=== PATIENT | male | born 1960 | race Caucasian/White ===

== ENCOUNTER 2017-01-31 02:08 | Observation (INO) ==
--- NOTE | 2017-01-31 02:41 | Emergency Department Report ---
General Adult HPI - General Chief complaint: Abdominal Pain Stated complaint: abd pain Time Seen by Provider: 01/31/17 02:13 Source: patient Mode of arrival: ambulatory Limitations: no limitations - History of Present Illness HPI narrative: 56-year-old male presents to the emergency department with the chief complaint of abdominal discomfort. Patient noted onset of symptoms around 7 PM today. Patient describes his discomfort as a burning sensation in the epigastric region without radiation. Patient describes his discomfort as moderate to severe. He denies any trauma, travel, poorly prepared food, recent antibiotic use. He denies any other complaints or associated symptoms. He was at home when his symptoms began. Symptoms have been persistent in nature since onset. Patient does have a history of acid reflux and notes that he has been without his PPI since January 29. Patient was discharged home on January 30, 2017 at 1600 after having a a surgery on his knee at 2100 on January 29, 2017. - Related Data Home Medications Medication Instructions Recorded Confirmed Omeprazole 1 cap PO BID #0 03/11/15 01/31/17 Silodosin [Rapaflo] 1 cap PO DAILY #0 03/11/15 01/31/17 Trazodone HCl 12.5 mg PO HS PRN #0 03/11/15 01/31/17 buPROPion HCl [Wellbutrin Xl] 1 tab PO HS #0 03/11/15 01/31/17 Iron Fum,Ps/Folic Acid/Vitc/B3 1 cap PO DAILY #30 cap 12/29/15 01/31/17 [Integra F Capsule] Hydrocodone/APAP 5/325 [[place] 1 tab PO PRN PRN 01/31/17 01/31/17 5/325] Previous Rx's Medication Instructions Recorded Amoxicillin/Potassium Clav 1 tab PO BID 7 Days #14 tab NS 12/29/15 [Augmentin 875-125 Tablet] Allergies Allergy/AdvReac Type Severity Reaction Status Date / Time No Known Allergies Allergy Verified 01/31/17 02:53 Review of Systems Constitutional: Denies: fever, chills Eyes: Denies: eye pain, vision change ENT: Denies: ear pain, throat pain Cardiovascular: Denies: chest pain, palpitations Respiratory: Denies: cough, dyspnea Gastrointestinal: Reports: abdominal pain, nausea, vomiting. Denies: diarrhea Genitourinary: Denies: urgency, dysuria Musculoskeletal: Denies: back pain, arthralgia Integumentary: Denies: erythema, rash Neurological: Denies: headache, numbness Psychiatric: Denies: anxiety, depression Endocrine: Denies: fatigue, heat or cold intolerance Hematological/Lymphatic: Denies: easy bleeding, easy bruising Allergic/Immunologic: Denies: facial swelling, urticaria PFSH Patient Stated Medical History Gastroesophageal Reflux Yes Disease Other Yes: enlarged prostate Clinic Medical History Cholelithiasis (Acute Medical) Dehydration (Acute Medical) Surgical History: Orthopedic surgeries Family History: Reviewed and noncontributory - Social History Smoking status: Never smoker Substance use type: does not use Alcohol intake frequency: does not drink Physical Exam - Limitations Limitations: no limitations - General General appearance: alert, in no apparent distress - Normal Exams: Head:: Normocephalic without trauma Eyes:: Pupils are PERRLA w/ EOMI, No scleral icterus, irritation, or foreign bodies noted ENMT:: No facial trauma, nasal exudates, pharyngeal erythema, or exudates are noted Dental: No fractured, loose, or missing teeth noted Neck:: Full range of motion, without adenopathy, JVD, bruits or thyromegaly Chest/Respirations:: Clear all gama, with good airflow, and symmetry bilaterally Cardiovascular:: Regular rate and rhythm, without murmur or gallop, Pulses 2+ all extremities, capillary refill, <2 seconds all extremities Abdomen:: Bowel sounds positive (soft. Generalized tenderness to the epigastrium. No rebound or guarding. No CVA tenderness.), non-distended, no hepatosplenomegaly, masses or bruits noted Lymphatic:: No lymphadenopathy, or lymphedema noted Musculoskeletal:: No tenderness, or deformity noted, good range of motion, all extremities Integumentary:: No rashes, hives, or bruising noted, hair and nails, without abnormality Neurological:: Patient is alert, and oriented, cranial nerves, motor/sensory/ cerebellar, exams w/o gross deficits, to observation Psychiatric:: Patient exhibits, appropriate attention, emotion and affect Course Vital Signs Temperature 98.2 F 01/31/17 02:10 Pulse Rate 67 01/31/17 02:10 Respiratory Rate 20 01/31/17 02:10 Blood Pressure 139/69 01/31/17 02:10 Pulse Oximetry 93 01/31/17 02:10 Temperature 98.2 F 01/31/17 02:10 Pulse Rate 72 01/31/17 04:38 Respiratory Rate 19 01/31/17 04:38 Blood Pressure 118/73 01/31/17 04:38 Pulse Oximetry 98 01/31/17 04:38 Medical Decision Making - [facility] Narrative Medical decision making narrative: Labs/imaging were discussed in detail with the patient and family and questions are answered. Patient was given approximately 750 mL of normal saline times one. Patient was given parental narcotic and antiemetic medications intravenously with improvement of symptoms. Patient was given a GI cocktail with some improvement. Patient and family are not comfortable returning home at this time. Patient requests admission to [facility] for further evaluation and treatment. Patient is discussed with Dr. Link from the tele- hospitalist service and will be admitted to the service of Dr. Heath in improved condition. Patient's initial pulse ox was noted at 93% however whenever the patient is instructed to take deep breaths his pulse ox raises and remains 96-98% on room air. Patient denies chest pain or shortness of breath. I have no current indication for antibiotic therapy at this time. No further orders from accepting physician who is in agreement with the current plan of management. Patient is admitted to the hospital for further evaluation and treatment at this time. - Differential Diagnosis GERD, cholelithiasis, acute cholecystitis, pancreatitis, SBO - Lab Data Result diagrams: 01/31/17 02:50 01/31/17 02:50 Lab Results 01/31/17 01/31/17 01/31/17 Range/Units 02:50 02:50 03:12 WBC 12.9 H (4.5-11.0) T/MM3 RBC 4.16 L (4.50-5.90) M/MM3 Hgb 13.4 L (13.5-17.5) GM/DL Hct 39.3 L (41-53) % MCV 94.5 (80-100) UM3 MCH 32.2 (26-34) UUG MCHC 34.1 (31-37) GM/DL RDW Std Deviation 42.0 (36.9-50.2) FL Plt Count 202 (130-400) T/MM3 MPV 9.5 (9.4-12.4) UM3 Immature Gran % (Auto) 0.2 (0.0-0.5) % Neut % (Auto) 82.1 H (33-66) % Lymph % (Auto) 10.3 L (23-45) % Rincon % (Auto) 6.9 (0-9.0) % Eos % (Auto) 0.4 (0-4) % Baso % (Auto) 0.1 (0-2) % Neut # (Auto) 10.6 H (1.8-7.7) T/MM3 Lymph # (Auto) 1.3 (1-4.8) T/MM3 Rincon # (Auto) 0.9 H (0-0.8) T/MM3 Eos # (Auto) 0.1 (0-0.5) T/MM3 Baso # (Auto) 0.0 (0-0.2) T/MM3 Abs Immat Gran (auto) 0.02 (0.00-0.03) T/MM3 Turbidity < 20 (0-20) Sodium 143 (134-144) MEQ/L Potassium 3.8 (3.6-5) MEQ/L Chloride 105 (98-107) MEQ/L Carbon Dioxide 26 (22-30) MEQ/L Anion Gap 12 (5-15) MEQ/L BUN 27.0 H (9-20) MG/DL Creatinine 1.0 (0.8-1.5) MG/DL GFR Calculation 77 BUN/Creatinine Ratio 27 H (6-26) RATIO Glucose 161 H (75-110) MG/DL Calculated Osmolality 283 H (261-280) MOSM/KG Calcium 9.4 (8.4-10.2) MG/DL Total Bilirubin 0.60 (0.20-1.30) MG/DL Icterus Index < 2 (0-7) AST 31 (17-59) U/L ALT 48 (21-72) U/L Alkaline Phosphatase 86 (38-126) U/L Troponin I < 0.012 (0-0.12) ng/ml Total Protein 7.3 (6.3-8.2) G/DL Albumin 4.1 (3.5-5.0) G/DL Globulin 3.2 (2.4-3.6) G/DL Albumin/Globulin Ratio 1.3 (1.1-2.2) RATIO Lipase 124 (23-300) U/L Specimen Hemolysis < 15 (0-25) Ur Collection Type Urine, clean catch Urine Color Yellow (YELLOW) Urine Clarity Clear Urine pH 7.0 (5.0-8.0) Ur Specific [place] 1.020 (1.015-1.025) Urine Protein Negative (NEGATIVE) Urine Glucose (UA) Negative (NEGATIVE) Urine Ketones Negative (NEGATIVE) Urine Occult Blood Negative (NEGATIVE) Urine Nitrate Negative (NEGATIVE) Urine Bilirubin Negative (NEGATIVE) Urine Urobilinogen 1.0 (NORMAL) EU/DL Ur Leukocyte Esterase Negative (NEGATIVE) Urinalysis Comment Microscopic not ind. - Radiology Data CT ABD/PELVIS: No evidence of gastritis or duodenitis. Cholelithiasis. No free air. No sign of acute cholecystitis. - EKG Data EKG #1 EKG results narrative: Sinus rhythm. 72 bpm. No STEMI. A normal EKG Disposition Clinical Impression: Dehydration Cholelithiasis Qualifiers: Cholelithiasis location: gallbladder Cholecystitis presence: without cholecystitis Biliary obstruction: without biliary obstruction Qualified Code(s) : K80.20 - Calculus of gallbladder without cholecystitis without obstruction Disposition: [address] [facility] Prescriptions: No Action buPROPion HCl [Wellbutrin Xl] 1 tab PO HS #0 Iron Fum,Ps/Folic Acid/Vitc/B3 [Integra F Capsule] 1 cap PO DAILY #30 cap Amoxicillin/Potassium Clav [Augmentin 875-125 Tablet] 1 tab PO BID 7 Days # 14 tab NS Trazodone HCl 12.5 mg PO HS PRN #0 PRN Reason: INSOMNIA Omeprazole 1 cap PO BID #0 Silodosin [Rapaflo] 1 cap PO DAILY #0 Hydrocodone/APAP 5/325 [[place] 5/325] 1 tab PO PRN PRN PRN Reason: Pain Referrals: Isrrael Lima MD [Physician] - Time of Disposition: 05:00 (Admit. Dr. Heaht. ) - Seen By: physician
[2017-01-31] MEDS ORDERED: NS 1,000 ML IV ONE (02:42)
[2017-01-31] MEDS ORDERED: ONDANSETRON 4 MG/2 ML INJECTION IVP ONE (02:45)
[2017-01-31] MEDS ORDERED: FentaNYL 100 MCG/2 ML INJECTION IVP PRN (02:45)
[2017-01-31] MEDS: SALINE FLUSH 10ml SYRINGE IVF PRN ×2 (02:49→06:53)
[2017-01-31] MEDS ORDERED: GI COCKTAIL 30 ML PO ONE (04:04)
--- NOTE | 2017-01-31 06:03 | History & Physical Report ---
History of Present Illness Date: 01/31/17 Chief complaint: Abdominal pain HPI: Mr Atkins is a 56 y/o male w/ h/o OA s/p TKA w/ recent procedure in [place] (1 overnight stay d/c'd yesterday afternoon), GERD, Anxiety, BPH, and recently diagnosed KEKE who presents to ED at [facility] w/ chief concern of epigastric abdominal pain. Patient states he is normally on omeprazole for GERD, however he stopped that on Wednesday for procedure, and after being discharged from Hospital yesterday afternoon returned home and took a 20mg omeprazole tab and then had a full supper. After supper, patient started having "gas pains" and stabbing pain in his epigastric area with multiple episodes of belching. The pain persisted and became worse through the night so he presented to the ED. He had one episode of n/v - states he made himself vomit to see if he would feel better. Patient denies diarrhea, denies hematemesis, denies f/c/s, denies chest pain and SOA and denies cough and denies constitutional symptoms. Has knee pain following recent procedure. In ER, WBC noted to be 12K, patient given GI cocktail and then Fentanyl and Zofran however continues to have epigastric abdominal pain, albeit is improving. Denies n/v at this time. Troponin negative, EKG unremarkable and CT scan abd/pelvis revealed two 1.5cm gallstones however no ductal dilation, no edema, no stranding and no wall thickening. BUN/Cr = 27/1. Patient started on IVFs Patient to admitted to the Hospitalist service for further evaluation and management. Review of Systems All systems PM: 10-point ROS was reviewed, no additional remarkable complaints except PFSH Patient Stated Medical History Gastroesophageal Reflux Yes Disease Other Yes: enlarged prostate Clinic Medical History Cholelithiasis (Acute Medical) Dehydration (Acute Medical) Recent Diagnosis of KEKE - just received his CPAP machine and hasn't started using consistently Anxiety/Depression BPH OA s/p TKA and then adjustment this past Wednesday H/o DVT in 2013 following a femur fx - on Xarelto for one year Surgical History: Orthopedic surgeries - Social History Smoking status: Never smoker Substance use type: does not use Alcohol intake frequency: does not drink Household members: spouse Medications Home Medications Medication Instructions Recorded Confirmed Type Omeprazole 1 cap PO BID #0 01/11/16 12/03/17 History Silodosin [Rapaflo] 1 cap PO DAILY #0 03/11/15 01/31/17 History Trazodone HCl 12.5 mg PO HS PRN #0 03/11/15 01/31/17 History buPROPion HCl [Wellbutrin Xl] 1 tab PO HS #0 03/11/15 01/31/17 History Iron Fum,Ps/Folic Acid/Vitc/B3 1 cap PO DAILY #30 cap 12/29/15 01/31/17 History [Integra F Capsule] Hydrocodone/APAP 5/325 [[place] 1 tab PO PRN PRN 01/31/17 01/31/17 History 5/325] Allergies Allergy/AdvReac Type Severity Reaction Status Date / Time No Known Allergies Allergy Verified 01/31/17 02:53 Exam Vital Signs: Temperature 98.2 F 01/31/17 02:10 Pulse Rate 72 01/31/17 04:38 Respiratory Rate 19 01/31/17 04:38 Blood Pressure 118/73 01/31/17 04:38 Pulse Oximetry 98 01/31/17 04:38 Telemetry Rhythm: Sinus Rhythm Height/Weight/BMI: Height 1.82 m - Constitutional Present: no acute distress, well nourished, well developed, cooperative - Routine HEENT Exam Head: Present: normocephalic, atraumatic Eye: Present: EOMI, PERRL. Absent: conjunctival icterus, scleral injection ENT: Present: mucous membranes dry, nares patent - Routine Neck Exam Present: supple, full ROM. Absent: JVD - Routine Respiratory Exam Present: CTA bilaterally - Routine Cardiovascular Exam Present: RRR. Absent: murmur - Routine Abdominal Exam Present: soft, normoactive bowel sounds, tenderness (in epigastric area), non distended - Routine Extremities Exam Absent: cyanosis, clubbing, edema - Routine Neurological Exam Present: alert, oriented X3, CN II-XII intact - Routine Psychiatric Exam Present: normal affect, normal thought process, cooperative Results - Labs CBC & Chem 7: 01/31/17 02:50 01/31/17 02:50 Assessment and Plan Assessment and Plan: Assessment: 1) Acute Abdominal pain - unclear etiology - has cholelithiasis on CT scan though not clear if related; has h/o GERD and has been off PPI so possibly acute Gastritis 2) Acute Dehydration 3) Cholelithiasis 4) GERD 5) OA s/p TKA w/ recent adjustment 6) Depression/Anxiety 7) KEKE - recent diagnosis - has new CPAP and hasn't used 8) H/o DVT in 2013 following femur fracture Plan: Admit to Hospitalist service NPO except for sips/chips IVFs PRN Zofran PRN Dilaudid 0.5mg IV q 2 hours IV Protonix 40mg q 24 hours Home meds as indicated SCDs Supportive Care I have discussed the plan of care w/ the patient and the patient's spouse and they verbalized understanding DVT Prophylaxis: SCD's GI Prophylaxis: Protonix Resuscitation Status: Full Code Hospital Course Summary Disclaimer: The visit summary below is not to be considered part of the above Progress Note.
[2017-01-31] MEDS ORDERED: HYDROMORPHONE 2 MG/ML INJECTION IVP PRN (06:41)
[2017-01-31] MEDS ORDERED: ONDANSETRON 4 MG/2 ML INJECTION IVP PRN (06:41)
[2017-01-31 06:49] VITALS: BMI 34.2
[2017-01-31] MEDS: NS 1,000 ML IV SCH ×2 (06:52→16:50)
[2017-01-31] MEDS: PANTOPRAZOLE 40 MG INJECTION IVP SCH (06:55)
--- NOTE | 2017-01-31 09:33 | CT Scan Report ---
Indication: abd pain PROCEDURE: CT abdomen pelvis wo con: Encounter: Initial Comparison: None Technique: Axial CT images were performed through the abdomen and pelvis without intravenous contrast. Coronal and sagittal two-dimensional reformats. Automated Exposure Control and Iterative Reconstruction dose reducing techniques were utilized. Findings: Mild atelectasis in the lung bases. The heart is enlarged. Small hiatal hernia. The liver is fatty infiltrated and enlarged. No bile duct dilatation. Two prominent gallstones within the gallbladder. No pericholecystic fluid or inflammation. The spleen, pancreas and adrenal glands are within normal limits. The kidneys are normal. No abdominal or pelvic lymphadenopathy. Bladder is normal. Prostate is mildly enlarged. No free fluid. No evidence of a bowel obstruction or acute diverticulitis. Moderate to large amount of stool in the right and transverse colon. No CT findings to suggest acute appendicitis. Bone windows show L4 and L5 spondylolysis with mild grade 1 spondylolisthesis of L4 on L5. Scoliosis and degenerative change in the spine. Impression: No acute disease process seen in the abdomen or pelvis. There is a preliminary report by [facility]. .
[2017-01-31] MEDS: HYDROCODONE/APAP 5mg/325mg TABLET PO PRN ×2 (16:32→23:21)
[2017-01-31 16:33] VITALS: RESP 16
[2017-01-31] MEDS ORDERED: BuPROPion XL 300mg (24HR) TABLET PO SCH (21:00)
[2017-02-01] MEDS: HYDROCODONE/APAP 5mg/325mg TABLET PO PRN ×2 (05:07→11:55)
[2017-02-01] MEDS: PANTOPRAZOLE 40 MG INJECTION IVP SCH (06:42)
[2017-02-01 07:30] VITALS: BP 99/64; PULSE 81; TEMP 98; O2SAT 95
--- NOTE | 2017-02-01 13:29 | Discharge Summary ---
<Jennifer Juares V - Last Filed: 02/01/17 13:32> Discharge Information Date of admission: 01/31/17 05:20 Anticipated date of discharge: 02/01/17 Attending Physician: Estella Fontanez MD Primary care physician: Leoncio Lombardi MD Consults: None - Discharge Diagnosis (1) Abdominal pain Status: Acute 1) Acute Abdominal pain - unclear etiology - has cholelithiasis on CT scan though not clear if related; has h/o GERD and has been off PPI so possibly acute Gastritis 2) Acute Dehydration 3) Cholelithiasis 4) GERD 5) OA s/p TKA w/ recent adjustment 6) Depression/Anxiety 7) KEKE - recent diagnosis - has new CPAP and hasn't used 8) H/o DVT in 2013 following femur fracture - Procedures Procedures: None - Laboratory Labs: 02/01/17 03:48 02/01/17 03:48 - Microbiology None - Radiology Radiology: 01/31/17- Ct Abdomen-Impression: No acute disease process seen in the abdomen or pelvis. - Pathology None History of Present Illness HPI: Mr Atkins is a 56 y/o male w/ h/o OA s/p TKA w/ recent procedure in [place] (1 overnight stay d/c'd yesterday afternoon), GERD, Anxiety, BPH, and recently diagnosed KEKE who presents to ED at [facility] [place] w/ chief concern of epigastric abdominal pain. Patient states he is normally on omeprazole for GERD, however he stopped that on Wednesday for procedure, and after being discharged from Hospital yesterday afternoon returned home and took a 20mg omeprazole tab and then had a full supper. After supper, patient started having "gas pains" and stabbing pain in his epigastric area with multiple episodes of belching. The pain persisted and became worse through the night so he presented to the ED. He had one episode of n/v - states he made himself vomit to see if he would feel better. Patient denies diarrhea, denies hematemesis, denies f/c/s, denies chest pain and SOA and denies cough and denies constitutional symptoms. Has knee pain following recent procedure. In ER, WBC noted to be 12K, patient given GI cocktail and then Fentanyl and Zofran however continues to have epigastric abdominal pain, albeit is improving. Denies n/v at this time. Troponin negative, EKG unremarkable and CT scan abd/pelvis revealed two 1.5cm gallstones however no ductal dilation, no edema, no stranding and no wall thickening. BUN/Cr = 27/1. Patient started on IVFs Patient to admitted to the Hospitalist service for further evaluation and management. Objective Vital signs: Temperature 98.0 F 02/01/17 07:28 Pulse Rate 81 02/01/17 07:28 Respiratory Rate 16 02/01/17 07:28 Blood Pressure 99/64 02/01/17 07:28 Pulse Oximetry 95 02/01/17 07:28 Height/Weight/BMI: Height 1.82 m Weight 113 kg Body Mass Index 34.2 - Constitutional Present: no acute distress, well nourished, well developed - Routine HEENT Exam Eye: Present: EOMI ENT: Present: mucous membranes moist, dentition normal - Routine Respiratory Exam Present: CTA bilaterally. Absent: wheezes - Routine Cardiovascular Exam Present: RRR, S1, S2. Absent: murmur - Routine Abdominal Exam Present: soft, normoactive bowel sounds, non distended. Absent: tenderness - Routine Extremities Exam Present: pulses intact Comments: Right knee immobilizer intact - Routine Skin Exam Present: intact, dry, warm - Routine Neurological Exam Present: alert, oriented X3, CN II-XII intact, moving all extremities - Routine Lymphatic Exam Lymphatic: Absent: adenopathy - Routine Psychiatric Exam Present: normal affect, cooperative Hospital Course This is a general summary of the patient's hospital course. For more details refer to the complete medical record. Hospital course: Sigifredo was admitted in the ammonia worker of 01/31/17 with abdominal/epigastric pain. He underwent workup in the ER and was found to have cholelithiasis without evidence of cholecystitis. Given leukocytosis and continued abdominal pain he was admitted outpatient observation for further evaluation. He had off Omeprazole since Wednesday and she was scheduled for right TKA with Dr Brad Marie. He was started back on IV Protonix and Zofran as needed on admission. He was placed on clear liquids to allow gut rest. Overnight his pain has resolved and his diet has advanced today. He was able to tolerate lunch without pain or nausea. Leukocytosis has resolved, and labs are stable. He will plan to discharge home and follow up with PCP Dr Lombardi. He is encourage to resume all normal home medications including omeprazole. He is also on a short course of Augmentin post-op as ordered be Orthopedics. Plan to follow up with Dr Marie as previously scheduled. GI Prophylaxis: other (Prilosec) Discharge Plan - Discharge Disposition Discharge Date: 02/01/17 Disposition: 01 Discharged Home, Self-Care *Condition: Stable Reason For Visit (Visit label in EMR): dehydration, abd pain, cholelithiasis - Discharge Medications *Discharge Medications: Continue buPROPion HCl [Wellbutrin Xl] 1 tab PO HS #0 Iron Fum,Ps/Folic Acid/Vitc/B3 [Integra F Capsule] 1 cap PO DAILY #30 cap Amoxicillin/Potassium Clav [Augmentin 875-125 Tablet] 1 tab PO BID 7 Days # 14 tab NS Trazodone HCl 12.5 mg PO HS PRN #0 PRN Reason: INSOMNIA Omeprazole 1 cap PO BID #0 Silodosin [Rapaflo] 1 cap PO HS #0 Hydrocodone/APAP 5/325 [[place] 5/325] 1 tab PO PRN PRN PRN Reason: Pain - Discharge Packet/Instructions *Diet: [place] diet and advance as tolerated *Activity: Activity as tolerated *Pain Management/Treatment: Tylenol or [place] as needed for pain control *Wound Care: As per Dr Marie Additional Instructions: Continue with all previous meds. *Notify Physician if: Fever, pain, severe abdominal pain or worsening symptoms *During Business Hours Contact: Contact Dr Lombardi office *After Business Hours Contact: Page oncall Physician, or present to the ER *Pending Lab/Results: No Pending Lab - Referrals/Follow Up *Referrals/Follow Up: Leoncio Lombardi MD [Family Provider] - Tyrone Marie MD [Physician] - - Patient Handouts Patient Handouts: Gallstones (GEN) - Dismissal Complete Discharge Instructions are:: Complete <Estella Fontanez - Last Filed: 02/01/17 20:02> Discharge Information Primary care physician: - Discharge Diagnosis (1) Abdominal pain Status: Acute Hospital Course This is a general summary of the patient's hospital course. For more details refer to the complete medical record. Hospital course: I have independently evaluated and examined this patient. I reviewed the chart, the patient's history, and the ACCOUNTANT TAX/PA's documented findings as above. We discussed and formulated the assessment and plan as above with additions as below: Mr. Atkins has had complete resolution of abdominal pain/nausea/vomiting. He attributes symptoms to having missed omeprazole for several days while he was at [place]. Liquids were tolerated well this morning and he is hungry. Patient is alert and in no distress. Respirations are nonlabored, abdomen is soft without any tenderness including in the right upper quadrant/epigastrium. Bowel sounds present/normal. CT demonstrated several large gallstones but no ductal dilatation or paracolic cystic fluid; gallbladder jose are not thickened. Symptoms have subsided with resumption of PPI and time. Do not believe additional hospital interventions or evaluation needed. Follow-up with Dr. Lombardi in the near future for reassessment.
== END 2017-02-01 13:48 | disposition home or self-care (01) ==
LOC: MED 02:08 → ED 02:08 → SUATTDRO 05:20 → MED 06:30
PROVIDERS: ADMIT Internal Medicine; ATTEND Internal Medicine